=== PATIENT | female | born 1995 | race Hispanic/Latino ===

== ENCOUNTER 2020-06-08 22:10 | Emergency (ER) | payer SELFPAY ==
[2020-06-08] MEDS ORDERED: Lidocaine 4% Cream 5 GM TUBE w/ Tegaderm ONE (23:35)
[2020-06-08] MEDS ORDERED: Lidocaine 1% PF 5 ML VIAL ONE (23:56)
== END 2020-06-09 00:32 | disposition home or self-care (01) ==
LOC: ERS 22:10
DX: L02.214 Cutaneous abscess of groin (principal); F17.200 Nicotine dependence, unspecified, uncomplicated
CPT/HCPCS: 10060

== ENCOUNTER 2023-01-18 12:59 | Day surgery (SDC) | payer BC ==
[2023-01-18] MEDS ORDERED: Sodium Bicarbonate 2.5 MEQ/5 ML VIAL ONE (13:08)
[2023-01-18] MEDS ORDERED: Lidocaine 1% PF 5 ML VIAL ONE (13:08)
[2023-01-18 14:25] VITALS: BP 113/65
== END 2023-01-18 14:15 | disposition home or self-care (01) ==
LOC: ULT 12:59
PROVIDERS: ATTEND Family Medicine
DX: E04.1 Nontoxic single thyroid nodule (principal)
CPT/HCPCS: 10005; 88173; 88305

== ENCOUNTER 2024-04-17 16:09 | Emergency (ER) | payer BC, SELFPAY | END 2024-04-17 19:15 | disposition home or self-care (01) | LOC: ERS 16:09 | DX: J20.9 Acute bronchitis, unspecified (principal); F17.200 Nicotine dependence, unspecified, uncomplicated | CPT/HCPCS: 71046; 87428 ==